=== PATIENT | male | born 1955 | race Caucasian/White ===

== ENCOUNTER 2017-12-19 00:13 | Inpatient (IN) | END 2017-12-20 14:43 | disposition home or self-care (01) | DRG 916 ==

== ENCOUNTER 2018-01-21 10:06 | Emergency (ER) | END 2018-01-21 11:58 | disposition home or self-care (01) ==

== ENCOUNTER 2018-01-23 11:02 | Emergency (ER) | END 2018-01-23 11:46 | disposition home or self-care (01) ==

== ENCOUNTER 2018-01-25 10:37 | Emergency (ER) | END 2018-01-25 12:10 | disposition home or self-care (01) ==

== ENCOUNTER 2018-02-08 16:45 | Emergency (ER) | END 2018-02-08 18:50 | disposition home or self-care (01) ==